=== PATIENT | female | born 1980 | race Caucasian/White ===

== ENCOUNTER 2016-10-17 20:49 | Emergency (ER) | payer BC | END 2016-10-17 21:38 | disposition home or self-care (01) | LOC: ER 20:49 | PROC: 0HQ1XZZ Repair Face Skin, External Approach (ICD-10-PCS; principal; 2016-10-17) | DX: S01.111A Laceration without foreign body of right eyelid and periocular area, initial encounter (principal); W22.8XXA Striking against or struck by other objects, initial encounter | CPT/HCPCS: 90471; 90714; 99283; A9270-GY ==